=== PATIENT | male | born 1970 | race Hispanic/Latino ===

== ENCOUNTER 2019-05-22 20:28 | Emergency (ER) | payer BC, OTHER ==
[2019-05-22] MEDS ORDERED: ALBUTEROL 2.5 MG/3 ML NEB SOL ONE (20:52)
[2019-05-22] MEDS ORDERED: IPRATROPIUM BROM 0.5MG/2.5ML ONE (20:52)
--- NOTE | 2019-05-22 21:05 | RAD REPORT ---
EXAM DESCRIPTION: Umm Single View05/22/2019 8:59 pm CLINICAL HISTORY: cough COMPARISON: 2011 FINDINGS: The lungs appear clear of acute infiltrate. The heart is normal size IMPRESSION: No acute abnormalities displayed
[2019-05-22] MEDS ORDERED: PANTOPRAZOLE 40MG TABLET PO ONE (21:22)
--- NOTE | 2019-05-22 21:41 | ER ---
Nurse's Notes [facility] Name: Oneal Easley Age: 49 yrs Sex: Male : 1970 Arrival Date: 05/22/2019 Time: 20:31 Bed 5 Private MD: Diagnosis: Bronchitis, not specified as acute or chronic;Gastro-esophageal reflux disease with esophagitis Presentation: 05/22 20:41 Presenting complaint: Patient states: Reports he has been having a cough for a month, ea stated he saw a physician about a week ago, received a steroid shot and doxycycline. Pt reports wheezing. Transition of care: patient was not received from another setting of care. Onset of symptoms was May 22, 2019. Risk Assessment: Do you want to hurt yourself or someone else? Patient reports no desire to harm self or others. Initial Sepsis Screen: Does the patient meet any 2 criteria? No. Patient's initial sepsis screen is negative. Does the patient have a suspected source of infection? No. Patient's initial sepsis screen is negative. Care prior to arrival: None. 20:41 Method Of Arrival: Ambulatory ea 20:41 Acuity: ANJUM 4 ea Historical: - Allergies: 20:46 No Known Allergies; ea - Home Meds: 20:46 carvedilol oral oral [Active]; ea - PMHx: 20:46 Hypertension; ea - PSHx: 20:46 None; ea - Immunization history:: Adult Immunizations up to date. - Social history:: Smoking status: Patient/guardian denies using tobacco. - Ebola Screening: : No symptoms or risks identified at this time. Screenin:44 Abuse screen: Denies threats or abuse. Nutritional screening: No deficits noted. ea Tuberculosis screening: No symptoms or risk factors identified. Fall Risk None identified. Assessment: 20:48 General: Appears in no apparent distress. Behavior is calm, cooperative, appropriate ea for age. Pain: Denies pain. Neuro: Level of Consciousness is awake, alert, obeys commands, Oriented to person, place, time, situation. Cardiovascular: Patient's skin is warm and dry. Respiratory: Airway is patent Respiratory effort is even, unlabored, Respiratory pattern is regular, symmetrical, Breath sounds with wheezes bilaterally. Derm: Skin is pink, warm \T\ dry. 21:38 Reassessment: Patient and/or family updated on plan of care and expected duration. Pain ea level reassessed. Patient is alert, oriented x 3, equal unlabored respirations, skin warm/dry/pink. 21:45 Reassessment: Patient and/or family updated on plan of care and expected duration. Pain ea level reassessed. Patient is alert, oriented x 3, equal unlabored respirations, skin warm/dry/pink. Discharge instruction given to patient, verbalized the understanding of instruction. Pt left ED ambulatory accompanied by family. Vital Signs: 20:45 BP 142 / 106; Pulse 99; Resp 18; Temp 98.2; Pulse Ox 98% on R/A; Weight 111.13 kg; ea Height 5 ft. 7 in. (170.18 cm); 21:38 BP 137 / 106; Pulse 87; Resp 18; Pulse Ox 100% on R/A; ea 20:45 Body Mass Index 38.37 (111.13 kg, 170.18 cm) ea ED Course: 20:31 Patient arrived in ED. jg7 20:40 Maynor Douglas MD is Attending Physician. tw4 20:41 Teresa Beth RN is Primary Nurse. ea 20:44 Triage completed. ea 20:46 Patient has correct armband on for positive identification. Bed in low position. Call ea light in reach. 20:47 Arm band placed on right wrist. Patient placed in an exam room, on a stretcher, on ea pulse oximetry. 21:46 No provider procedures requiring assistance completed. Patient did not have IV access ea during this emergency room visit. Administered Medications: 21:00 Drug: DuoNeb (3:1) (2.5 mg - 0.5 mg) 3 ml Route: Nebulizer; ea 21:23 Follow up: Response: No adverse reaction ea 21:23 Drug: ProTONIX 40 mg Route: PO; ea 21:37 Follow up: Response: No adverse reaction ea Outcome: 21:40 Discharge ordered by . tw4 21:46 Discharged to home ambulatory, with family. ea 21:46 Condition: stable 21:46 Discharge instructions given to patient, Instructed on discharge instructions, follow up and referral plans. medication usage, Demonstrated understanding of instructions, follow-up care, medications, Prescriptions given X 4. 21:47 Patient left the ED. ea Signatures: Teresa Beth RN RN ea Wadley, Terrence, MD MD tw4 Edie Pritchard jg7
--- NOTE | 2019-05-22 21:41 | EDPHYS ---
Physician Documentation [facility] Name: Oneal Easley Age: 49 yrs Sex: Male : 1970 Arrival Date: 05/22/2019 Time: 20:31 Bed 5 Private MD: ED Physician Maynor Douglas HPI: 05/22 21:36 This 49 yrs old Male presents to ER via Ambulatory with complaints of Cough. tw4 21:36 The patient or guardian reports cough. Severity of symptoms: 1 month(s) ago, At their tw4 worst the symptoms were moderate. Modifying factors: The symptoms are alleviated by nothing, the symptoms are aggravated by nothing. Associated signs and symptoms: The patient has no apparent associated signs or symptoms. The patient has not experienced similar symptoms in the past. Historical: - Allergies: 20:46 No Known Allergies; ea - Home Meds: 20:46 carvedilol oral oral [Active]; ea - PMHx: 20:46 Hypertension; ea - PSHx: 20:46 None; ea - Immunization history:: Adult Immunizations up to date. - Social history:: Smoking status: Patient/guardian denies using tobacco. - Ebola Screening: : No symptoms or risks identified at this time. ROS: 21:36 Constitutional: Negative for fever, chills, and weight loss, Eyes: Negative for injury, tw4 pain, redness, and discharge, Cardiovascular: Negative for chest pain, palpitations, and edema, Abdomen/GI: Negative for abdominal pain, nausea, vomiting, diarrhea, and constipation, Back: Negative for injury and pain, MS/Extremity: Negative for injury and deformity, Skin: Negative for injury, rash, and discoloration, Neuro: Negative for headache, weakness, numbness, tingling, and seizure. 21:36 Respiratory: Positive for cough, with clear sputum, shortness of breath, Negative for dyspnea on exertion, hemoptysis, orthopnea, pleurisy, shortness of breath. Exam: 21:36 Constitutional: This is a well developed, well nourished patient who is awake, alert, tw4 and in no acute distress. Head/Face: Normocephalic, atraumatic. Chest/axilla: Normal chest wall appearance and motion. Nontender with no deformity. No lesions are appreciated. Cardiovascular: Regular rate and rhythm with a normal S1 and S2. No gallops, murmurs, or rubs. Normal PMI, no JVD. No pulse deficits. Respiratory: Lungs have equal breath sounds bilaterally, clear to auscultation and percussion. No rales, rhonchi or wheezes noted. No increased work of breathing, no retractions or nasal flaring. Abdomen/GI: Soft, non-tender, with normal bowel sounds. No distension or tympany. No guarding or rebound. No evidence of tenderness throughout. Back: No spinal tenderness. No costovertebral tenderness. Full range of motion. MS/ Extremity: Pulses equal, no cyanosis. Neurovascular intact. Full, normal range of motion. Neuro: Awake and alert, GCS 15, oriented to person, place, time, and situation. Cranial nerves II-XII grossly intact. Motor strength 5/5 in all extremities. Sensory grossly intact. Cerebellar exam normal. Normal gait. Vital Signs: 20:45 BP 142 / 106; Pulse 99; Resp 18; Temp 98.2; Pulse Ox 98% on R/A; Weight 111.13 kg; ea Height 5 ft. 7 in. (170.18 cm); 21:38 BP 137 / 106; Pulse 87; Resp 18; Pulse Ox 100% on R/A; ea 20:45 Body Mass Index 38.37 (111.13 kg, 170.18 cm) ea MDM: 20:40 Patient medically screened. tw4 21:36 Differential Diagnosis: Obstructed Airway Bronchitis Influenza Upper Respiratory tw4 Infection Pharyngitis Asthma Exacerbation Viral Syndrome Pneumonia. Data reviewed: vital signs, nurses notes. Data reviewed: radiologic studies, plain films. Data interpreted: Pulse oximetry: Interpretation: normal. Counseling: I had a detailed discussion with the patient and/or guardian regarding: the historical points, exam findings, and any diagnostic results supporting the discharge/admit diagnosis, radiology results. Medication response: albuterol nebulizer treatment(s) relieved the patient's symptoms. The patient is no longer wheezing. Response to treatment: the patient's symptoms have resolved after treatment. 05/22 20:46 Order name: CXR XRAY tw4 05/22 21:10 Order name: RAD EDMS Administered Medications: 21:00 Drug: DuoNeb (3:1) (2.5 mg - 0.5 mg) 3 ml Route: Nebulizer; ea 21:23 Follow up: Response: No adverse reaction ea 21:23 Drug: ProTONIX 40 mg Route: PO; ea 21:37 Follow up: Response: No adverse reaction ea Disposition: 05/22/19 21:40 Discharged to Home. Impression: Bronchitis, not specified as acute or chronic, Gastro-esophageal reflux disease with esophagitis. - Condition is Stable. - Discharge Instructions: Acute Bronchitis, Adult, Gastroesophageal Reflux Disease, Adult, Upper Respiratory Infection, Adult, Metered Dose Inhaler (No Spacer Used), Food Choices for Gastroesophageal Reflux Disease, Child. - Prescriptions for Tessalon Perles 100 mg Oral Capsule - take 1 capsule by ORAL route every 8 hours As needed; 15 capsule. Albuterol Sulfate 90 mcg/actuation - inhale 1-2 puff by INHALATION route every 4-6 hours; 1 Inhaler. Guaifenesin AC 10- 100 mg/5 mL Oral Liquid - take 10 milliliter by ORAL route every 4 hours As needed; 240 milliliter. Protonix 40 mg Oral Tablet - take 1 tablet by ORAL route once daily; 30 tablet. - Medication Reconciliation Form, Thank You Letter, Antibiotic Education, Prescription Opioid Use form. - Follow up: Private Physician; When: Upon discharge from the Emergency Department; Reason: Recheck today's complaints, Continuance of care. - Problem is new. - Symptoms have improved. Signatures: Dispatcher [employer] Teresa Padilla, Maynor Becker RN, ea, MD MD tw4 Corrections: (The following items were deleted from the chart) 21:40 21:40 05/22/2019 21:40 Discharged to Home. Impression: Bronchitis, not specified as tw4 acute or chronic. Condition is Stable. Forms are Medication Reconciliation Form, Thank You Letter, Antibiotic Education, Prescription Opioid Use. Follow up: Private Physician; When: Upon discharge from the Emergency Department; Reason: Recheck today's complaints, Continuance of care. Problem is new. Symptoms have improved. tw4 21:47 21:40 05/22/2019 21:40 Discharged to Home. Impression: Bronchitis, not specified as ea acute or chronic; Gastro-esophageal reflux disease with esophagitis. Condition is Stable. Discharge Instructions: Acute Bronchitis, Adult, Upper Respiratory Infection, Adult, Metered Dose Inhaler (No Spacer Used). Prescriptions for Tessalon Perles 100 mg Oral Capsule - take 1 capsule by ORAL route every 8 hours As needed; 15 capsule, Albuterol Sulfate 90 mcg/actuation - inhale 1-2 puff by INHALATION route every 4-6 hours; 1 Inhaler, Guaifenesin AC 10-100 mg/5 mL Oral Liquid - take 10 milliliter by ORAL route every 4 hours As needed; 240 milliliter. and Forms are Medication Reconciliation Form, Thank You Letter, Antibiotic Education, Prescription Opioid Use. Follow up: Private Physician; When: Upon discharge from the Emergency Department; Reason: Recheck today's complaints, Continuance of care. Problem is new. Symptoms have improved. tw4
[2019-05-23 02:05] VITALS: TEMP 98.2
[2019-05-23 02:06] VITALS: BP 137/106; O2SAT 100
== END 2019-05-22 21:47 | disposition home or self-care (01) ==
LOC: ER 20:28
DX: J40 Bronchitis, not specified as acute or chronic (principal); K21.0 Gastro-esophageal reflux disease with esophagitis; I10 Essential (primary) hypertension
CPT/HCPCS: 71045; 94640; 99284